=== PATIENT | female | born 2005 | race Caucasian/White ===

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

== ENCOUNTER 2024-09-12 11:00 | Outpatient (CLI) | payer OTHER, BC, MEDICAID, SELFPAY ==
[2024-09-12 11:09] VITALS: BP 125/76; PULSE 97
[2024-09-12 11:12] VITALS: BMI 29.0
[2024-09-12 11:25] VITALS: BP 105/66; PULSE 92
[2024-09-12 11:40] VITALS: BP 113/61; PULSE 82
[2024-09-12 11:46] VITALS: BP 113/61; PULSE 82; RESP 16
== END 2024-09-12 11:47 | disposition home or self-care (01) ==
LOC: OPOB 11:06 → OBGYN 11:06
PROVIDERS: PCP Electrodiagnostic Medicine; Visit Provider Family Medicine
DX: O26.899 Other specified pregnancy related conditions, unspecified trimester (principal); Z3A.00 Weeks of gestation of pregnancy not specified; Q21.3 Tetralogy of Fallot; Q79.2 Exomphalos
CPT/HCPCS: 59025

== ENCOUNTER 2024-09-19 09:38 | Outpatient (CLI) | payer BC, MEDICAID, SELFPAY ==
[2024-09-19 09:38] VITALS: BMI 28.3
[2024-09-19 09:51] VITALS: BP 119/70; PULSE 107
== END 2024-09-19 11:13 | disposition home or self-care (01) ==
LOC: OPOB 09:41 → OBGYN 09:42
PROVIDERS: PCP Electrodiagnostic Medicine; Visit Provider Family Medicine
DX: O26.899 Other specified pregnancy related conditions, unspecified trimester (principal); Z3A.00 Weeks of gestation of pregnancy not specified; Q21.3 Tetralogy of Fallot
CPT/HCPCS: 59025; 99211

== ENCOUNTER 2024-09-21 17:40 | Outpatient (CLI) | payer BC, MEDICAID, SELFPAY ==
[2024-09-21 17:40] VITALS: BMI 28.7
[2024-09-21 17:50] VITALS: BP 123/68; PULSE 90
[2024-09-21 18:05] VITALS: BP 126/69; PULSE 92
[2024-09-21 18:20] VITALS: BP 126/89; PULSE 92; O2SAT 98
== END 2024-09-21 18:20 | disposition home or self-care (01) ==
LOC: OPOB 17:42 → OBGYN 17:43
PROVIDERS: PCP Electrodiagnostic Medicine; Visit Provider Family Medicine
DX: O35.9XX0 Maternal care for (suspected) fetal abnormality and damage, unspecified, not applicable or unspecified (principal); Z3A.00 Weeks of gestation of pregnancy not specified
CPT/HCPCS: 59025

== ENCOUNTER 2024-09-28 17:42 | Outpatient (CLI) | payer BC, MEDICAID, SELFPAY ==
[2024-09-28 17:35] VITALS: BMI 28.7
[2024-09-28 17:47] VITALS: BP 113/84; PULSE 104
[2024-09-28 18:02] VITALS: BP 122/76; PULSE 91
[2024-09-28 18:16] VITALS: BP 111/61; PULSE 83
== END 2024-09-28 18:30 | disposition home or self-care (01) ==
LOC: OPOB 17:42 → OBGYN 17:43
PROVIDERS: PCP Electrodiagnostic Medicine; Visit Provider Family Medicine
DX: O35.9XX0 Maternal care for (suspected) fetal abnormality and damage, unspecified, not applicable or unspecified (principal); Z3A.00 Weeks of gestation of pregnancy not specified
CPT/HCPCS: 59025; 99211

== ENCOUNTER 2024-10-05 17:22 | Outpatient (CLI) | payer BC, MEDICAID, SELFPAY ==
[2024-10-05 17:38] VITALS: BMI 29.2
[2024-10-05 17:39] VITALS: RESP 16
[2024-10-05 17:47] VITALS: BP 123/73; PULSE 80
[2024-10-05 18:02] VITALS: BP 116/71; PULSE 101
[2024-10-05 18:17] VITALS: BP 118/82; PULSE 91
== END 2024-10-05 18:35 | disposition home or self-care (01) ==
LOC: OPOB 17:22 → OBGYN 17:26 → OPOB 17:35 → OBGYN 17:35
PROVIDERS: PCP Electrodiagnostic Medicine; Visit Provider Family Medicine
DX: O35.9XX0 Maternal care for (suspected) fetal abnormality and damage, unspecified, not applicable or unspecified (principal); Z3A.00 Weeks of gestation of pregnancy not specified
CPT/HCPCS: 59025

== ENCOUNTER 2024-10-12 19:31 | Outpatient (CLI) | payer BC, MEDICAID, SELFPAY ==
[2024-10-12 19:39] VITALS: BP 119/70; PULSE 95
[2024-10-12 19:53] VITALS: BP 109/62; PULSE 86
[2024-10-12 20:08] VITALS: BP 119/72; PULSE 107; BMI 28.7
[2024-10-12 20:24] VITALS: BP 127/82; PULSE 102
== END 2024-10-12 20:25 | disposition home or self-care (01) ==
LOC: OPOB 19:33 → OBGYN 19:34
PROVIDERS: PCP Electrodiagnostic Medicine; Visit Provider Family Medicine
DX: O26.899 Other specified pregnancy related conditions, unspecified trimester (principal); Z3A.00 Weeks of gestation of pregnancy not specified; Q21.3 Tetralogy of Fallot; Q79.2 Exomphalos
CPT/HCPCS: 59025

== ENCOUNTER 2024-10-19 17:25 | Outpatient (CLI) | payer BC, MEDICAID, SELFPAY ==
[2024-10-19 17:32] VITALS: BMI 29.2
[2024-10-19 17:35] VITALS: BP 118/77; PULSE 94
[2024-10-19 17:55] VITALS: BP 121/72; PULSE 96
[2024-10-19 18:00] VITALS: BP 121/72; PULSE 96; RESP 16; TEMP 35.8; O2SAT 98
== END 2024-10-19 18:00 | disposition home or self-care (01) ==
LOC: OPOB 17:31 → OBGYN 17:31
PROVIDERS: PCP Electrodiagnostic Medicine; Visit Provider Family Medicine
DX: O35.9XX0 Maternal care for (suspected) fetal abnormality and damage, unspecified, not applicable or unspecified (principal); Z3A.00 Weeks of gestation of pregnancy not specified; Q24.9 Congenital malformation of heart, unspecified
CPT/HCPCS: 59025; 99211